=== PATIENT | male | born 1935 | race Caucasian/White ===

== ENCOUNTER → 2017-04-12 | Outpatient (CLI) | payer MEDICARE, BC ==
[~2017-04-12] MED LIST: ACETAMINOPHEN W1 TA6 PO; ACIDOPHILUS PO; ASMANEX TW0.22 MG/A1 IH; AVODART 0.5MG0.5 MG PO; BRINTELLIX5; BUPROPION HCL150 M1 PO; BUPROPION HCL150 MG PO; CARDI-OMEGA1000 MG PO; CARDIZEM CD 12120 MG PO; CARDIZEM120 MG PO; CLONAZEPAM PO; COLACE 100100 MG/CAP PO; CPAP; D-31000 IU PO; DILTIAZEM120 MG PO; DOCUSATE; DOCUSATE SODIU100 MG PO; DOCUSATE100 MG PO; EFFEXOR XR75 MG/CAP PO; FETZIMA40 PO; FISH OIL1000 MG PO; FLOMAX 0.40.4 MG/CAP PO; FORADIL; FORADIL IH; IMDUR 30MG30 MG/TAB PO; IPRATROPIUM BROM3 M1 IH; KLONOPIN 1MG1 MG PO; KLONOPIN WAFERS1 MG PO; LASIX 20MG TABL20 MG PO; LASIX 40MG TABL40 MG PO; LASIX40 MG PO; LEVAQUIN 750MG750 M1 PO; LEVOTHROID0.15 MG PO; LEVOXYL0.112 MG PO; LEVOXYL0.175 MG PO; LEXAPRO 10MG10 MG PO; LEXAPRO20 MG PO; LISINOPRIL10 MG PO; LUMIGAN 2.5 ML2.5 M1 OP; LUMIGAN EYE GTTS OU; MAGNESIUM PO; MELATONIN5 M1 PO; METHYLIN5 M1 PO; MIRTAZAPINE PO; MIRTAZAPINE7.5 MG PO; MOBIC15 MG PO; NASONEX SPRAY17 GM NS; NITROQUICK0.4 MG SL; NITROSTAT0.4 MG/TAB SL; NORCO 325 MG-51 TAB PO; OXYGEN; PLAVIX 75MG TAB75 MG PO; PRAVACHOL 20MG20 MG PO; PRAVACHOL10 MG PO; PREDNISONE10 MG PO; PROBIOTIC ACID1 EAC3 PO; PROBIOTIC FORMU1 CAP PO; PROSCAR; PROSCAR 5MG5 MG PO; PROSCAR PO; REMERON 15M15 MG/TA1 PO; SYNTHROID 0.10.15 MG PO; SYNTHROID0.137 MG PO; SYNTHROID0.175 MG PO; SYSTANE 0.4%-0.1 SOL OP; SYSTANE GEL EYE10 ML OP; TERAZOSIN HCL PO; TYLENOL 325MG325 MG PO; TYLENOL 500MG500 MG PO; VENTOLIN0.09 MG IH; VITAMIN D1000 IU PO; XANAX0.25 MG PO; ZINC PO; ZOCOR 10MG10 MG PO; ZOCOR10 MG PO; [UNRECOGNIZED DRUG - OTHER]; [UNRECOGNIZED DRUG - OTHER]; [UNRECOGNIZED DRUG - OTHER] PO; methylin
== END ==
LOC: COL.RAD 04-11 09:30
DX: M25.551 Pain in right hip (principal)
CPT/HCPCS: J3301; Q9967

== ENCOUNTER → 2017-05-07 | Outpatient (CLI) | payer MEDICARE, BC | LOC: COL.RAD 13:00 | DX: M25.551 Pain in right hip (principal); Z96.641 Presence of right artificial hip joint | CPT/HCPCS: J3301; Q9967 ==

== ENCOUNTER 2017-05-12 10:57 | Observation (INO) | payer MEDICARE, BC ==
[~2017-05-12] VITALS: Ht 190.5 cm; Wt 104.3 kg
[~2017-05-12 10:57] MED LIST changes: -EFFEXOR XR75 MG/CAP PO; -LEVOXYL0.112 MG PO; -MOBIC15 MG PO; -NITROSTAT0.4 MG/TAB SL; -PROBIOTIC ACID1 EAC3 PO; -SYSTANE GEL EYE10 ML OP; -TYLENOL 500MG500 MG PO
[2017-05-12 11:25] LABS: BASO % 0.4 % (0.0-2.0); EOS # 0.2 (0.0-0.7); GRAN % 74.2 % (42.2-75.2); LYMPH # 0.9 (1.2-3.4); LYMPH % 11.6 % (20.0-51.0); MEAN CELL VOLUME 97 fl (80.0-100.0); MEAN CORPUSCULAR HGB CONC 34 g/dl (33.0-37.0); MEAN PLATELET VOLUME 10.3 fl (7.4-10.4); MONO # 0.9 (0.1-0.6); MONO % 11.3 % (1.7-9.3); PLATELET COUNT 150 K/mm3 (130-400); WHITE BLOOD COUNT 8.1 K/mm3 (4.8-10.8)
[2017-05-12 11:28] LABS: HEMATOCRIT 33.9 % (42.0-52.0); HEMOGLOBIN 11.5 g/dl (13.5-18.0); MEAN CORPUSCULAR HEMOGLOBIN 33 pg (27.0-31.0)
[2017-05-12 11:39] LABS: CALCIUM 9.4 mg/dL (8.4-10.2); CREATININE, serum 0.56 mg/dL (0.66-1.25); POTASSIUM 4.3 mmol/L (3.4-5.0)
[2017-05-12] MEDS ORDERED: LEVOXYL0.112 MG PO (11:44)
[2017-05-12] MEDS ORDERED: CARDIZEM120 MG PO (11:45)
[2017-05-12] MEDS ORDERED: LASIX 40MG TABL40 MG PO (11:45)
[2017-05-12] MEDS ORDERED: FLOMAX 0.40.4 MG/CAP PO (11:46)
[2017-05-12] MEDS ORDERED: AVODART 0.5MG0.5 MG PO (11:46)
[2017-05-12] MEDS ORDERED: COLACE 100100 MG/CAP PO (11:47)
[2017-05-12] MEDS ORDERED: EFFEXOR XR75 MG/CAP PO (11:47)
[2017-05-12] MEDS ORDERED: MOBIC15 MG PO (11:47)
[2017-05-12] MEDS ORDERED: NITROSTAT0.4 MG/TAB SL (11:48)
[2017-05-12] MEDS ORDERED: NORCO 325 MG-51 TAB PO (11:49)
[2017-05-12] MEDS ORDERED: KLONOPIN 1MG1 MG PO (11:49)
[2017-05-12] MEDS ORDERED: REMERON 15M15 MG/TA1 PO (11:49)
[2017-05-12] MEDS ORDERED: VITAMIN D1000 IU PO (11:50)
[2017-05-12] MEDS ORDERED: PROBIOTIC ACID1 EAC3 PO (11:51)
[2017-05-12] MEDS ORDERED: TYLENOL 500MG500 MG PO (11:52)
[2017-05-12] MEDS ORDERED: SYSTANE GEL EYE10 ML OP (11:52)
[2017-05-12 11:57] LABS: ERYTHROCYTE SEDIMENTATION RATE 30 mm/hr (0-30)
[2017-05-12 17:00] VITALS: BP 125/75; BP 134/71; PULSE 102; PULSE 104; TEMP 97.6; TEMP 98.1
[2017-05-12 17:19] LABS: PH 6 (5-8); SQUAMOUS EPITHELIAL None Seen /hpf; URINE APPEARANCE Clear; URINE BACTERIA None Seen /hpf; URINE BILIRUBIN Negative (NEGATIVE); URINE BLOOD Negative (NEGATIVE); URINE COLOR Yellow; URINE GLUCOSE Negative (NEGATIVE); URINE KETONE Negative (NEGATIVE); URINE WBC 0-2 /hpf
[2017-05-12 18:46] VITALS: BP 125/75; PULSE 102; TEMP 98.1
[2017-05-12 21:38] VITALS: BP 124/71; PULSE 105; TEMP 98.1
[2017-05-13 05:07] VITALS: BP 135/74; PULSE 103; TEMP 98.9
[2017-05-13 10:14] VITALS: BP 111/66; PULSE 108; TEMP 98.5
[2017-05-13] MEDS ORDERED: IPRATROPIUM BROM3 M1 IH ×2 (11:08)
[2017-05-13] MEDS ORDERED: KLONOPIN 1MG1 MG PO (11:13)
[2017-05-13] MEDS ORDERED: NORCO 325 MG-51 TAB PO (11:13)
[2017-05-13 11:47] VITALS: BP 111/66; PULSE 108; TEMP 98.5
[2017-05-13] MEDS ORDERED: LEVAQUIN 750MG750 M1 PO (11:47)
== END 2017-05-13 13:45 ==
LOC: COL.ER 10:57 → SURG 13:42
PROVIDERS: Emergency Medicine; Internal Medicine
DX: S82.221A Displaced transverse fracture of shaft of right tibia, initial encounter for closed fracture (principal); S82.421A Displaced transverse fracture of shaft of right fibula, initial encounter for closed fracture; J44.9 Chronic obstructive pulmonary disease, unspecified; I25.10 Atherosclerotic heart disease of native coronary artery without angina pectoris; N40.0 Benign prostatic hyperplasia without lower urinary tract symptoms; Z96.641 Presence of right artificial hip joint; Z95.818 Presence of other cardiac implants and grafts; Z90.2 Acquired absence of lung [part of]; Z87.891 Personal history of nicotine dependence; Z82.49 Family history of ischemic heart disease and other diseases of the circulatory system
CPT/HCPCS: 99239; G0378; G8978-GP; G8979-GP; J1170; J1650; L1830

== ENCOUNTER → 2017-05-17 | Outpatient (CLI) | payer MEDICARE, BC ==
[~2017-05-17] MED LIST changes: +EFFEXOR XR75 MG/CAP PO; +LEVOXYL0.112 MG PO; +MOBIC15 MG PO; +NITROSTAT0.4 MG/TAB SL; +PROBIOTIC ACID1 EAC3 PO; +SYSTANE GEL EYE10 ML OP; +TYLENOL 500MG500 MG PO
== END ==
LOC: COL.RAD 15:00
DX: J84.9 Interstitial pulmonary disease, unspecified (principal); J98.4 Other disorders of lung; J92.9 Pleural plaque without asbestos; R91.8 Other nonspecific abnormal finding of lung field; Z98.890 Other specified postprocedural states
CPT/HCPCS: Q9967

== ENCOUNTER → 2017-06-14 | Outpatient (CLI) | payer MEDICARE, BC | LOC: COL.RAD 09:08 | DX: Z01.812 Encounter for preprocedural laboratory examination (principal); J44.9 Chronic obstructive pulmonary disease, unspecified; J18.9 Pneumonia, unspecified organism; R91.8 Other nonspecific abnormal finding of lung field | CPT/HCPCS: Q9967 ==

== ENCOUNTER → 2017-06-17 | Outpatient (CLI) | payer MEDICARE, BC ==
[2017-06-17 10:08] LABS: MEAN CELL VOLUME 102 fl (80.0-100.0); MEAN CORPUSCULAR HGB CONC 32 g/dl (33.0-37.0); MEAN PLATELET VOLUME 10.4 fl (7.4-10.4); PLATELET COUNT 208 K/mm3 (130-400); RED BLOOD COUNT 3.33 M/mm3 (4.20-5.60); REDCELL DISTRIBUTION WIDTH-CV 15.8 % (11.5-14.5); WHITE BLOOD COUNT 4.3 K/mm3 (4.8-10.8)
[2017-06-17 10:10] LABS: ADD PATHOLOGY DIFF REVIEW NO; HEMATOCRIT 33.8 % (42.0-52.0); HEMOGLOBIN 10.9 g/dl (13.5-18.0); MEAN CORPUSCULAR HEMOGLOBIN 33 pg (27.0-31.0)
[2017-06-17 10:40] LABS: URINE APPEARANCE Cloudy; URINE COLOR Yellow
[2017-06-17 10:41] LABS: PH 6 (5-8); URINE BILIRUBIN Negative (NEGATIVE); URINE BLOOD 2+ (NEGATIVE); URINE GLUCOSE Negative (NEGATIVE); URINE KETONE Negative (NEGATIVE); URINE UROBILINOGEN Negative (NEGATIVE)
[2017-06-17 11:08] LABS: ANISOCYTOSIS 1+; BAND 6 % (0-10); EOSINOPHIL 1 % (0-4); NEUTROPHILS 57 % (42.0-75.2); PLATELET ESTIMATE NORMAL (NORMAL); TOTAL CELLS COUNTED 100
[2017-06-17 11:09] LABS: HYPOCHROMIA 1+; OVALOCYTES 2+
== END ==
LOC: ZLAB.STJ 09:59
PROVIDERS: Internal Medicine
DX: J96.10 Chronic respiratory failure, unspecified whether with hypoxia or hypercapnia (principal); R33.8 Other retention of urine

== ENCOUNTER → 2017-06-27 | Outpatient (CLI) | payer MEDICARE, BC ==
[2017-06-27 09:53] LABS: MEAN CELL VOLUME 99 fl (80.0-100.0); MEAN CORPUSCULAR HGB CONC 33 g/dl (33.0-37.0); MEAN PLATELET VOLUME 10.3 fl (7.4-10.4); PLATELET COUNT 214 K/mm3 (130-400); RED BLOOD COUNT 3.48 M/mm3 (4.20-5.60); REDCELL DISTRIBUTION WIDTH-CV 15.7 % (11.5-14.5); WHITE BLOOD COUNT 3.8 K/mm3 (4.8-10.8)
[2017-06-27 09:54] LABS: HEMATOCRIT 34.6 % (42.0-52.0); HEMOGLOBIN 11.4 g/dl (13.5-18.0); MEAN CORPUSCULAR HEMOGLOBIN 33 pg (27.0-31.0)
== END ==
LOC: ZLAB.STJ 09:44
PROVIDERS: Internal Medicine
DX: S82.221D Displaced transverse fracture of shaft of right tibia, subsequent encounter for closed fracture with routine healing (principal)

== ENCOUNTER → 2017-07-09 | Outpatient (CLI) | payer MEDICARE, BC ==
[2017-07-09 20:19] LABS: PH 5 (5-8); SQUAMOUS EPITHELIAL 0-2 /hpf; URINE APPEARANCE Cloudy; URINE BACTERIA Rare /hpf; URINE BILIRUBIN Negative (NEGATIVE); URINE BLOOD 1+ (NEGATIVE); URINE COLOR Yellow; URINE GLUCOSE Negative (NEGATIVE); URINE KETONE Negative (NEGATIVE); URINE WBC >50 /hpf
== END ==
LOC: ZCOL.LAB 17:18
PROVIDERS: Internal Medicine
DX: N40.1 Benign prostatic hyperplasia with lower urinary tract symptoms (principal)

== ENCOUNTER → 2017-07-17 | Outpatient (CLI) | payer MEDICARE, BC ==
[2017-07-17 10:00] LABS: BASO % 0.8 % (0.0-2.0); EOS # 0.3 (0.0-0.7); EOS % 7.5 % (0-4.0); GRAN % 51.8 % (42.2-75.2); LYMPH # 0.9 (1.2-3.4); LYMPH % 24.2 % (20.0-51.0); MEAN CELL VOLUME 100 fl (80.0-100.0); MEAN CORPUSCULAR HGB CONC 33 g/dl (33.0-37.0); MEAN PLATELET VOLUME 10.3 fl (7.4-10.4); MONO # 0.6 (0.1-0.6); MONO % 15.2 % (1.7-9.3); PLATELET COUNT 205 K/mm3 (130-400); RED BLOOD COUNT 3.56 M/mm3 (4.20-5.60); REDCELL DISTRIBUTION WIDTH-CV 14.9 % (11.5-14.5); WHITE BLOOD COUNT 3.9 K/mm3 (4.8-10.8)
[2017-07-17 10:01] LABS: HEMATOCRIT 35.7 % (42.0-52.0); HEMOGLOBIN 11.6 g/dl (13.5-18.0); MEAN CORPUSCULAR HEMOGLOBIN 33 pg (27.0-31.0)
[2017-07-17 10:15] LABS: ADJUSTED CALCIUM 9.3 mg/dL (8.4-10.2); ALBUMIN 3.8 gm/dL (3.5-5.0); BILIRUBIN,TOTAL 0.6 mg/dL (0.0-1.0); CALCIUM 9.1 mg/dL (8.4-10.2); CREATININE, serum 0.47 mg/dL (0.66-1.25); POTASSIUM 4.5 mmol/L (3.4-5.0); TOTAL PROTEIN 7.3 gm/dL (6.4-8.2)
[2017-07-17 10:45] LABS: THYROID STIMULATING HORMONE 33.1 uIU/mL (0.465-4.680)
== END ==
LOC: ZLAB.STJ 09:47
PROVIDERS: Internal Medicine
DX: E03.4 Atrophy of thyroid (acquired) (principal); E63.9 Nutritional deficiency, unspecified

== ENCOUNTER → 2017-08-02 | Outpatient (CLI) | payer MEDICARE, BC ==
[2017-08-02 22:34] LABS: PH 5 (5-8); SQUAMOUS EPITHELIAL None Seen /hpf; URINE APPEARANCE Clear; URINE BACTERIA Rare /hpf; URINE BILIRUBIN Negative (NEGATIVE); URINE BLOOD Negative (NEGATIVE); URINE COLOR Yellow; URINE GLUCOSE Negative (NEGATIVE); URINE KETONE Negative (NEGATIVE); URINE RBC 0-2 /hpf; URINE UROBILINOGEN Negative (NEGATIVE); URINE WBC 0-2 /hpf
== END ==
LOC: ZLAB.STJ 16:00
PROVIDERS: Internal Medicine
DX: N39.0 Urinary tract infection, site not specified (principal)

== ENCOUNTER → 2017-09-25 | Outpatient (CLI) | payer MEDICARE, BC | LOC: COL.RAD 11:11 | DX: S82.1 Fracture of upper end of tibia (principal); S82.409 Unspecified fracture of shaft of unspecified fibula; M85.88 Other specified disorders of bone density and structure, other site; M89.36 Hypertrophy of bone, tibia and fibula ==

== ENCOUNTER → 2017-10-18 | Outpatient (CLI) | payer MEDICARE, BC ==
[2017-10-18 10:34] LABS: THYROID STIMULATING HORMONE 26.9 uIU/mL (0.465-4.680)
== END ==
LOC: ZLAB.STJ 09:35
PROVIDERS: Internal Medicine
DX: E55.9 Vitamin D deficiency, unspecified (principal); E03.9 Hypothyroidism, unspecified

== ENCOUNTER → 2017-11-13 | Outpatient (REF) ==
[2017-11-13 10:23] LABS: CREATININE, serum 0.55 mg/dL (0.66-1.25)
== END ==
LOC: ZLAB.STJ 09:58
PROVIDERS: Internal Medicine
DX: R33.8 Other retention of urine (principal)

== ENCOUNTER → 2017-11-14 | Outpatient (CLI) | payer MEDICARE, BC | LOC: COL.RAD 08:17 | DX: I71.4 Abdominal aortic aneurysm, without rupture (principal) | CPT/HCPCS: J7050; Q9967 ==

== ENCOUNTER → 2017-12-02 | Outpatient (CLI) | payer MEDICARE, BC ==
[2017-12-02 16:02] LABS: THYROID STIMULATING HORMONE 9.93 uIU/mL (0.465-4.680)
== END ==
LOC: ZLAB.STJ 15:14
PROVIDERS: Internal Medicine
DX: Z01.89 Encounter for other specified special examinations (principal)

== ENCOUNTER → 2018-01-14 | Outpatient (CLI) | payer MEDICARE, BC ==
[2018-01-14 10:20] LABS: THYROID STIMULATING HORMONE 4.93 uIU/mL (0.465-4.680)
== END ==
LOC: ZLAB.STJ 09:32
PROVIDERS: Internal Medicine
DX: E03.9 Hypothyroidism, unspecified (principal)

== ENCOUNTER → 2018-03-18 | Outpatient (CLI) | payer MEDICARE, BC ==
[2018-03-18 10:51] LABS: THYROID STIMULATING HORMONE 3.79 uIU/mL (0.465-4.680)
== END ==
LOC: ZLAB.STJ 09:58
PROVIDERS: Internal Medicine
DX: E03.9 Hypothyroidism, unspecified (principal)

== ENCOUNTER → 2018-04-16 | Outpatient (CLI) | payer MEDICARE, BC ==
[2018-04-16 10:01] LABS: COLLECTION METHOD CLEAN CATCH
[2018-04-16 10:10] LABS: BASO % 0.3 % (0.0-2.0); EOS # 0.4 (0.0-0.7); EOS % 9.1 % (0-4.0); GRAN # 2.1 (1.4-6.5); GRAN % 55.7 % (42.2-75.2); HEMOGLOBIN 11.4 g/dl (13.5-18.0); LYMPH # 0.7 (1.2-3.4); MEAN CELL VOLUME 99 fl (80.0-100.0); MEAN CORPUSCULAR HEMOGLOBIN 33 pg (27.0-31.0); MEAN CORPUSCULAR HGB CONC 33 g/dl (33.0-37.0); MEAN PLATELET VOLUME 10.8 fl (7.4-10.4); MONO # 0.6 (0.1-0.6); MONO % 15.4 % (1.7-9.3); PLATELET COUNT 181 K/mm3 (130-400); RED BLOOD COUNT 3.45 M/mm3 (4.20-5.60)
[2018-04-16 10:11] LABS: MUCOUS Present /lpf; PH 6 (5-8); SQUAMOUS EPITHELIAL None Seen /hpf; URINE APPEARANCE Clear; URINE BACTERIA None Seen /hpf; URINE BILIRUBIN Negative (NEGATIVE); URINE BLOOD Negative (NEGATIVE); URINE COLOR Yellow; URINE GLUCOSE Negative (NEGATIVE); URINE KETONE Negative (NEGATIVE); URINE LEUKOCYTE ESTERASE Negative (NEGATIVE); URINE NITRATE Negative (NEGATIVE); URINE PROTEIN(semi-quant) Negative (NEGATIVE); URINE RBC 0-2 /hpf; URINE UROBILINOGEN >=4.0 mg/dL (NEGATIVE); URINE WBC 0-2 /hpf
[2018-04-16 10:12] LABS: HEMATOCRIT 34.1 % (42.0-52.0)
[2018-04-16 10:20] LABS: ALBUMIN 3.5 gm/dL (3.5-5.0); BILIRUBIN,TOTAL 0.6 mg/dL (0.0-1.0); CALCIUM 9.2 mg/dL (8.4-10.2); CHOLESTEROL RISK RATIO 3.6; CREATININE, serum 0.46 mg/dL (0.66-1.25); POTASSIUM 4.7 mmol/L (3.4-5.0); TOTAL PROTEIN 7.4 gm/dL (6.4-8.2)
[2018-04-16 10:49] LABS: THYROID STIMULATING HORMONE 3.38 uIU/mL (0.465-4.680)
== END ==
LOC: ZLAB.STJ 09:58
PROVIDERS: Internal Medicine
DX: E55.9 Vitamin D deficiency, unspecified (principal); E03.9 Hypothyroidism, unspecified; R73.9 Hyperglycemia, unspecified; R33.8 Other retention of urine

== ENCOUNTER → 2018-06-18 | Outpatient (CLI) | payer MEDICARE, BC | LOC: ZLAB.STJ 14:19 | DX: R82.90 Unspecified abnormal findings in urine (principal) ==

== ENCOUNTER → 2018-07-18 | Outpatient (CLI) | payer MEDICARE, BC | LOC: ZLAB.STJ 13:37 | DX: Z51.81 Encounter for therapeutic drug level monitoring (principal) ==

== ENCOUNTER → 2018-08-04 | Outpatient (REF) ==
[2018-08-04 10:14] LABS: BASO % 0.6 % (0.0-2.0); EOS # 0.3 (0.0-0.7); EOS % 9.1 % (0-4.0); GRAN # 1.8 (1.4-6.5); GRAN % 51.6 % (42.2-75.2); HEMOGLOBIN 11.5 g/dl (13.5-18.0); LYMPH # 0.7 (1.2-3.4); LYMPH % 21.1 % (20.0-51.0); MEAN CELL VOLUME 102 fl (80.0-100.0); MEAN CORPUSCULAR HEMOGLOBIN 33 pg (27.0-31.0); MEAN CORPUSCULAR HGB CONC 32 g/dl (33.0-37.0); MONO # 0.6 (0.1-0.6); PLATELET COUNT 180 K/mm3 (130-400); REDCELL DISTRIBUTION WIDTH-CV 15.9 % (11.5-14.5)
[2018-08-04 10:15] LABS: HEMATOCRIT 35.6 % (42.0-52.0)
[2018-08-04 10:25] LABS: ALBUMIN 3.7 gm/dL (3.5-5.0); BILIRUBIN,TOTAL 0.4 mg/dL (0.0-1.0); CALCIUM 8.9 mg/dL (8.4-10.2); CHOLESTEROL RISK RATIO 4.1; CREATININE, serum 0.49 mg/dL (0.66-1.25); POTASSIUM 4.7 mmol/L (3.4-5.0); TOTAL PROTEIN 7.3 gm/dL (6.4-8.2)
[2018-08-04 10:54] LABS: THYROID STIMULATING HORMONE 31.1 uIU/mL (0.465-4.680)
[2018-08-04 11:12] LABS: PSA-TOTAL 0.26 ng/mL (0-4)
== END ==
LOC: ZLAB.STJ 10:04
PROVIDERS: Internal Medicine
DX: Z01.89 Encounter for other specified special examinations (principal)
CPT/HCPCS: G0103

== ENCOUNTER → 2018-08-12 | Outpatient (REF) | LOC: ZLAB.STJ 13:59 | DX: E55.9 Vitamin D deficiency, unspecified (principal) ==

== ENCOUNTER → 2018-08-12 | Outpatient (CLI) | payer MEDICARE, BC | LOC: COL.VAS 15:00 | DX: M79.89 Other specified soft tissue disorders (principal); M79.661 Pain in right lower leg ==

== ENCOUNTER → 2018-08-13 | Outpatient (REF) ==
[2018-08-13 14:10] LABS: COLLECTION METHOD CLEAN CATCH
[2018-08-13 14:18] LABS: MUCOUS Present /lpf; PH 7 (5-8); SQUAMOUS EPITHELIAL None Seen /hpf; URINE APPEARANCE Clear; URINE BACTERIA None Seen /hpf; URINE BILIRUBIN Negative (NEGATIVE); URINE BLOOD Negative (NEGATIVE); URINE COLOR Straw; URINE GLUCOSE Negative (NEGATIVE); URINE KETONE Negative (NEGATIVE); URINE LEUKOCYTE ESTERASE Negative (NEGATIVE); URINE NITRATE Negative (NEGATIVE); URINE PROTEIN(semi-quant) Negative (NEGATIVE); URINE RBC 0-2 /hpf; URINE WBC None Seen /hpf
== END ==
LOC: ZLAB.STJ 14:09
PROVIDERS: Internal Medicine
DX: Z01.89 Encounter for other specified special examinations (principal)

== ENCOUNTER → 2018-08-20 | Outpatient (CLI) | payer MEDICARE, BC | LOC: ZLAB.STJ 10:35 | DX: Z51.81 Encounter for therapeutic drug level monitoring (principal) ==

== ENCOUNTER → 2018-09-06 | Outpatient (CLI) | payer MEDICARE, BC | LOC: COL.LAB 10:17 | DX: Z51.81 Encounter for therapeutic drug level monitoring (principal) ==

== ENCOUNTER → 2018-09-23 | Outpatient (REF) ==
[2018-09-23 11:15] LABS: THYROID STIMULATING HORMONE 4.56 uIU/mL (0.465-4.680)
== END ==
LOC: ZLAB.STJ 10:17
PROVIDERS: Internal Medicine
DX: R94.6 Abnormal results of thyroid function studies (principal)

== ENCOUNTER → 2018-10-23 | Outpatient (CLI) | payer MEDICARE, BC ==
[2018-10-23 11:48] LABS: CALCIUM 9.5 mg/dL (8.4-10.2); CREATININE, serum 0.48 mg/dL (0.66-1.25); POTASSIUM 4.6 mmol/L (3.4-5.0)
== END ==
LOC: ZLAB.STJ 10:29
PROVIDERS: Internal Medicine
DX: R60.9 Edema, unspecified (principal)

== ENCOUNTER → 2018-10-29 | Outpatient (CLI) | payer MEDICARE, BC ==
[2018-10-29 13:29] LABS: CALCIUM 8.9 mg/dL (8.4-10.2); CREATININE, serum 0.44 mg/dL (0.66-1.25); POTASSIUM 4.7 mmol/L (3.4-5.0)
== END ==
LOC: ZLAB.STJ 11:54
PROVIDERS: Internal Medicine
DX: I10 Essential (primary) hypertension (principal)

== ENCOUNTER → 2018-12-10 | Outpatient (CLI) | payer MEDICARE, BC | LOC: COL.VAS 10:51 | DX: I25.119 Atherosclerotic heart disease of native coronary artery with unspecified angina pectoris (principal); I36.1 Nonrheumatic tricuspid (valve) insufficiency ==

== ENCOUNTER → 2018-12-15 | Outpatient (CLI) | payer MEDICARE, BC ==
[2018-12-15 11:52] LABS: CALCIUM 9.5 mg/dL (8.4-10.2); CREATININE, serum 0.53 mg/dL (0.66-1.25); POTASSIUM 4.2 mmol/L (3.4-5.0)
== END ==
LOC: ZLAB.STJ 10:58
PROVIDERS: Internal Medicine
DX: R79.89 Other specified abnormal findings of blood chemistry (principal)

== ENCOUNTER → 2018-12-25 | Outpatient (CLI) | payer MEDICARE, BC | LOC: COL.RAD 13:04 | DX: M19.011 Primary osteoarthritis, right shoulder (principal) | CPT/HCPCS: J3301; Q9967 ==